=== PATIENT | female | born 1970 | race African-American/Black ===

== ENCOUNTER 2016-12-02 20:42 | Inpatient (IN) | payer OTHER, MEDICAID ==
[~2016-12-02] VITALS: Ht 170.2 cm; Wt 108.9 kg
[~2016-12-02 20:42] MED LIST: ASPIRIN; EXTAVIA; LEVOTHYROXINE PO; MOMETASONE FUROATE; NAPROXEN; NOVOLOG; SIMV40TA5 PO; VIT D; [UNRECOGNIZED DRUG - CODE]; [UNRECOGNIZED DRUG - OTHER]
[2016-12-02 23:08] LABS: BASOPHILS % 0.6 % (0.0-2.0); EOSINOPHILS % 0.8 % (0.0-5.0); HEMATOCRIT. 41.8 % (36.0-48.0); HEMOGLOBIN. 13.8 g/dL (12.0-16.0); LYMPHOCYTES % 27.3 % (20.0-50.0); MEAN CORPUSCULAR HEMOGLOBIN 29.7 pg (28.0-32.0); MEAN CORPUSCULAR VOLUME 89.6 fL (81.0-99.0); MEAN PLATELET VOLUME 10.7 fl (7.4-10.4); MONOCYTES % 4.1 % (2.0-8.0); NEUTROPHILS % 67.2 % (40.0-76.0); PLATELET 124 x1000/uL (130-400); RED BLOOD CELL COUNT 4.66 mill/uL (4.2-5.4); RED CELL DISTRIBUTION WIDTH 15.2 % (11.6-14.6)
[2016-12-02 23:14] LABS: HCG SCREEN NEGATIVE
[2016-12-02 23:15] LABS: CHLORIDE 108 mEq/L (98-107)
[2016-12-02 23:17] LABS: CARBON DIOXIDE 24 mEq/L (21-32)
[2016-12-02 23:23] LABS: CREATINE KINASE 127 IU/L (26-192); PHOSPHORUS 2.9 mg/dL (2.5-4.9)
[2016-12-02 23:25] LABS: CREATINE KINASE MB FRACTION 3.5 ng/mL (0.5-3.6); TROPONIN I < 0.02 ng/mL (0.00-0.04)
[2016-12-03] MEDS ORDERED: MECLIZINE 25MG TABLET PO ONE (01:30)
[2016-12-03 04:00] VITALS: BP 153/87
[2016-12-03] MEDS ORDERED: DEXTROSE 50% WATER 50ML SYRINGE IV PRN (05:30)
[2016-12-03] MEDS ORDERED: ONDANSETRON HCL 4MG/2ML VIAL IV PRN (05:45)
[2016-12-03] MEDS ORDERED: ASPIRIN/ACETAMINOPHEN/CAFFEINE 250/250/65MG TABLET PO PRN ×3 (05:45→06:00)
[2016-12-03] MEDS ORDERED: ACETAMINOPHEN 325MG TABLET PO PRN (05:45)
[2016-12-03] MEDS: BLOOD SUGAR DIAGNOSTIC STRIP TEST SCH ×5 (06:46→20:27)
[2016-12-03 08:00] VITALS: BP 120/61
[2016-12-03] MEDS: LEVOTHYROXINE SODIUM 25MCG TABLET PO SCH (08:22)
[2016-12-03] MEDS: INSULIN LISPRO 100 UNITS/ML SUBCUT SCH ×5 (09:32→20:27)
[2016-12-03 12:00] VITALS: BP 118/68
[2016-12-03] MEDS: ASPIRIN/ACETAMINOPHEN/CAFFEINE 250/250/65MG TABLET PO PRN (12:21)
[2016-12-03 16:00] VITALS: BP 138/72
[2016-12-03 20:00] VITALS: BP 136/70
[2016-12-04] VITALS: BP 138/86
[2016-12-04] MEDS ORDERED: INSULIN DETEMIR UD 100 UNITS/ML SYR SUBCUT SCH ×2 (02:00→22:00)
[2016-12-04] MEDS ORDERED: BLOOD SUGAR DIAGNOSTIC STRIP TEST SCH (03:00)
[2016-12-04] MEDS ORDERED: INSULIN LISPRO 100 UNITS/ML SUBCUT SCH (07:40)
[2016-12-04] MEDS: INSULIN LISPRO 100 UNITS/ML SUBCUT SCH ×3 (07:40→18:03)
[2016-12-04] MEDS: INSULIN LISPRO (LOW DOSE) 100 UNITS/ML SUBCUT SCH ×3 (07:40→18:07)
[2016-12-04] MEDS: BLOOD SUGAR DIAGNOSTIC STRIP TEST SCH ×3 (07:40→18:07)
[2016-12-04] MEDS: LEVOTHYROXINE SODIUM 25MCG TABLET PO SCH (07:40)
[2016-12-04 08:00] VITALS: BP 121/68
[2016-12-04] MEDS: ASPIRIN/ACETAMINOPHEN/CAFFEINE 250/250/65MG TABLET PO PRN (11:45)
[2016-12-04 12:00] VITALS: BP 132/64
[2016-12-04 13:42] LABS: CARBON DIOXIDE 26 mEq/L (21-32); CHLORIDE 106 mEq/L (98-107)
[2016-12-04 14:00] VITALS: BP 118/62
[2016-12-04 16:00] VITALS: BP 126/64
[2016-12-04 17:00] VITALS: BP 135/83
== END 2016-12-04 18:55 | disposition short-term general hospital (02) | DRG 637 ==
LOC: ER 21:14 → 7WST 12-03 01:19 → ENRESERV 12-03 05:01
PROVIDERS: ADMIT Internal Medicine; ATTEND Internal Medicine
DX: E10.649 Type 1 diabetes mellitus with hypoglycemia without coma (principal); G93.41 Metabolic encephalopathy; E03.9 Hypothyroidism, unspecified; E66.9 Obesity, unspecified; E78.00 Pure hypercholesterolemia, unspecified; F41.1 Generalized anxiety disorder; D23.9 Other benign neoplasm of skin, unspecified; G35 Multiple sclerosis; I10 Essential (primary) hypertension; Z79.899 Other long term (current) drug therapy; Z83.3 Family history of diabetes mellitus; Z68.37 Body mass index [BMI] 37.0-37.9, adult; T38.3X5A Adverse effect of insulin and oral hypoglycemic [antidiabetic] drugs, initial encounter
CPT/HCPCS: 36415; 80048; 80053; 82533; 82550; 82553; 82962; 83519; 83735; 84100; 84132; 84443; 84484; 84681; 84703; 85025; 93005; 93970; 99285; J1815; J2405; J8597

== ENCOUNTER 2017-12-10 17:26 | Emergency (ER) | payer OTHER, MEDICAID ==
[~2017-12-10] VITALS: Ht 165.1 cm; Wt 69.0 kg
[2017-12-10] MEDS ORDERED: DEXTROSE 50% WATER 50ML SYRINGE IV ONE ×2 (18:14→18:30)
[2017-12-10] MEDS ORDERED: SODIUM CHLORIDE 0.9% 1,000 ML IV ONE (18:19)
[2017-12-10] MEDS ORDERED: IBUPROFEN 600MG TABLET PO ONE (18:30)
[2017-12-10 20:28] LABS: BASOPHILS % 0.5 % (0.0-2.0); EOSINOPHILS % 1.5 % (0.0-5.0); HEMATOCRIT. 39.2 % (36.0-48.0); HEMOGLOBIN. 12.8 g/dL (12.0-16.0); LYMPHOCYTES % 39.5 % (20.0-50.0); MEAN CORPUSCULAR HEMOGLOBIN 29.5 pg (28.0-32.0); MEAN CORPUSCULAR VOLUME 90.3 fL (81.0-99.0); MEAN PLATELET VOLUME 12.6 fl (7.4-10.4); MONOCYTES % 7.3 % (2.0-8.0); NEUTROPHILS % 51.2 % (40.0-76.0); PLATELET 112 x1000/uL (130-400); RED BLOOD CELL COUNT 4.35 mill/uL (4.2-5.4); RED CELL DISTRIBUTION WIDTH 15.4 % (11.6-14.6)
[2017-12-10 23:30] VITALS: BP 145/67
[2017-12-11 00:01] LABS: CHLORIDE 108 mEq/L (98-107)
== END 2017-12-11 01:09 | disposition home or self-care (01) ==
LOC: ER 17:26
DX: S82.491A Other fracture of shaft of right fibula, initial encounter for closed fracture (principal); S82.51XA Displaced fracture of medial malleolus of right tibia, initial encounter for closed fracture; E11.649 Type 2 diabetes mellitus with hypoglycemia without coma; T38.3X5A Adverse effect of insulin and oral hypoglycemic [antidiabetic] drugs, initial encounter; W01.0XXA Fall on same level from slipping, tripping and stumbling without subsequent striking against object, initial encounter; Y93.89 Activity, other specified; Y92.512 Supermarket, store or market as the place of occurrence of the external cause; Z79.4 Long term (current) use of insulin; Z88.5 Allergy status to narcotic agent
CPT/HCPCS: 29515; 36415; 73610; 80053; 81025; 82962; 85025; 96361; 96374; 99285; J7030

== ENCOUNTER 2019-01-08 12:30 | Emergency (ER) | payer OTHER, MEDICAID ==
[~2019-01-08] VITALS: Ht 170.2 cm; Wt 109.0 kg
[2019-01-08] MEDS ORDERED: CLONIDINE 0.2MG TABLET PO ONE (16:15)
[2019-01-08 17:20] VITALS: BP 174/87
== END 2019-01-08 17:23 | disposition home or self-care (01) ==
LOC: ER 12:46
DX: B02.9 Zoster without complications (principal); G35 Multiple sclerosis; I10 Essential (primary) hypertension; Z88.2 Allergy status to sulfonamides; Z79.899 Other long term (current) drug therapy
CPT/HCPCS: 99283

== ENCOUNTER 2021-01-28 10:20 | Inpatient (IN) | payer OTHER, MEDICAID ==
[~2021-01-28] VITALS: Ht 170.2 cm; Wt 117.9 kg
[~2021-01-28 10:20] MED LIST changes: +SIMV-46 PO; -SIMV40TA5 PO
[2021-01-28] MEDS ORDERED: SODIUM CHLORIDE 0.9% 1,000 ML IV ONE (11:15)
[2021-01-28 11:49] LABS: BASOPHILS % 1.3 % (0.0-2.0); HEMATOCRIT. 44.3 % (36.0-48.0); LYMPHOCYTES % 24.1 % (20.0-50.0); MEAN CORPUSCULAR HEMOGLOBIN 28.9 pg (28.0-32.0); MEAN CORPUSCULAR VOLUME 91.2 fL (81.0-99.0); MEAN PLATELET VOLUME 11.1 fl (7.4-10.4); MONOCYTES % 5.7 % (2.0-8.0); NEUTROPHILS % 68.9 % (40.0-76.0); PLATELET 218 x1000/uL (130-400); RED BLOOD CELL COUNT 4.85 mill/uL (4.2-5.4); RED CELL DISTRIBUTION WIDTH 16.3 % (11.6-14.6)
[2021-01-28 11:53] LABS: CLARITY URINE CLEAR (CLEAR); COLOR URINE YELLOW (YELLOW); KETONES URINE 3+ (NEGATIVE); LEUKOCYTE ESTERASE URINE NEGATIVE (NEGATIVE); NITRITE URINE POSITIVE (NEGATIVE); OCCULT BLOOD URINE 2+ (NEGATIVE); PH URINE 5.5 (4.5-8.0); PROTEIN URINE TRACE (NEGATIVE); UROBILINOGEN URINE 0.2 E.U./dL (0.2-1.0)
[2021-01-28 11:54] LABS: CHLORIDE 96 mEq/L (98-107)
[2021-01-28 11:59] LABS: ETHANOL BLOOD < 10 mg/dL
[2021-01-28 12:01] LABS: BETA HYDROXYBUTYRATE 8.2 mMol/L (0.0-0.3)
[2021-01-28 12:01] LABS: BG BASE EXCESS -15.5 mmol/L (-2.0-2.0); BG CARBOXYHEMOGLOBIN 0.4 % (0.5-1.5); BG FRACTION INSPIRED OXYGEN 21; BG METHEMOGLOBIN 0.3 % (0.0-1.5); BG OXYHEMOGLOBIN 96.3 % (94.0-97.0); BG PCO2 24.1 mmHg (35.0-45.0); BG PH 7.236 (7.350-7.450); BG PO2 105.9 mmHg (75.0-100.0); BG SAMPLE SITE RIGHT RADIAL; BG TOTAL HEMOGLOBIN 14.7 g/dL (12.0-18.0); BG VENT MODE ROOM AIR
[2021-01-28 12:03] LABS: CREATINE KINASE 36 IU/L (26-192)
[2021-01-28] MEDS ORDERED: LEVOFLOXACIN 500MG PREMIX 100 ML IV ONE (12:15)
[2021-01-28] MEDS ORDERED: INSULIN REGULAR (DRIP) 100 UNITS in SODIUM CHLORIDE 0.9% 99 ML IV ONE ×2 (12:15→15:00)
[2021-01-28 13:15] LABS: *AMPHETAMINES SCREEN URINE NEGATIVE (NEGATIVE); *BARBITURATES SCREEN URINE NEGATIVE (NEGATIVE); *BENZODIAZEPINES SCREEN URINE NEGATIVE (NEGATIVE)
[2021-01-28 13:16] LABS: *COCAINE SCREEN URINE NEGATIVE (NEGATIVE); CANNABINOID URINE SCREEN NEGATIVE (NEGATIVE); METHADONE URINE SCREEN NEGATIVE (NEGATIVE); OPIATES URINE SCREEN NEGATIVE (NEGATIVE); PHENCYCLIDINE URINE SCREEN NEGATIVE (NEGATIVE)
[2021-01-28] MEDS ORDERED: SODIUM CHLORIDE 0.9% 1000ML BAG (SEPSIS BOLUS) IV ONE (14:45)
[2021-01-28] MEDS ORDERED: ACETAMINOPHEN 325MG TABLET PO PRN (16:15)
[2021-01-28] MEDS ORDERED: ONDANSETRON HCL 4MG/2ML INJ IV PRN (16:15)
[2021-01-28] MEDS ORDERED: SODIUM CHLORIDE 0.9% 1,000 ML IV SCH (16:15)
[2021-01-28 21:23] LABS: CHLORIDE 109 mEq/L (98-107)
[2021-01-28 21:29] LABS: PHOSPHORUS 3.7 mg/dL (2.5-4.9)
[2021-01-29 01:58] LABS: CHLORIDE 112 mEq/L (98-107)
[2021-01-29] MEDS ORDERED: DEXTROSE 50% WATER 50ML SYRINGE IV PRN (03:15)
[2021-01-29] MEDS: INSULIN LISPRO (HIGH DOSE) 100 UNITS/ML SUBCUT SCH ×4 (06:41→21:13)
[2021-01-29] MEDS: BLOOD SUGAR DIAGNOSTIC STRIP TEST SCH ×4 (06:41→21:15)
[2021-01-29 08:20] LABS: BASOPHILS % 0.6 % (0.0-2.0); EOSINOPHILS % 0.8 % (0.0-5.0); HEMATOCRIT. 39.4 % (36.0-48.0); HEMOGLOBIN. 13.3 g/dL (12.0-16.0); LYMPHOCYTES % 30.2 % (20.0-50.0); MEAN CORPUSCULAR HEMOGLOBIN 29.9 pg (28.0-32.0); MEAN CORPUSCULAR VOLUME 88.6 fL (81.0-99.0); MEAN PLATELET VOLUME 10.4 fl (7.4-10.4); MONOCYTES % 12.2 % (2.0-8.0); NEUTROPHILS % 56.2 % (40.0-76.0); PLATELET 201 x1000/uL (130-400); RED BLOOD CELL COUNT 4.45 mill/uL (4.2-5.4); RED CELL DISTRIBUTION WIDTH 15.5 % (11.6-14.6)
[2021-01-29 08:24] LABS: CHLORIDE 113 mEq/L (98-107)
[2021-01-29 08:25] LABS: CHLORIDE 112 mEq/L (98-107)
[2021-01-29] MEDS ORDERED: LEVOFLOXACIN 500MG PREMIX 100 ML IV SCH (09:00)
[2021-01-29 09:30] VITALS: BP 121/75
[2021-01-29 10:42] VITALS: BP 121/75
[2021-01-29] MEDS: LEVOFLOXACIN 500MG PREMIX 100 ML IV SCH (11:55)
[2021-01-29] MEDS: PANTOPRAZOLE SODIUM 40 MG/VIAL IV SCH (11:55)
[2021-01-29 12:00] VITALS: BP 128/58
[2021-01-29] MEDS: SODIUM CHLORIDE 0.45% 1,000 ML IV SCH (12:05)
[2021-01-29] MEDS ORDERED: INSULIN GLARGINE UD 100 UNITS/ML SYR SUBCUT SCH (13:00)
[2021-01-29 16:00] VITALS: BP 143/89
[2021-01-29 20:00] VITALS: BP 120/69
[2021-01-29] MEDS ORDERED: SODIUM POLYSTYRENE SULFONATE 15 G/60 ML BOT PO NR (20:00)
[2021-01-29] MEDS: ENOXAPARIN 30MG/0.3ML SYR SUBCUT SCH (22:13)
[2021-01-29] MEDS: INSULIN GLARGINE UD 100 UNITS/ML SYR SUBCUT SCH (22:13)
[2021-01-30] VITALS: BP 132/78
[2021-01-30 04:00] VITALS: BP 127/74
[2021-01-30] MEDS: BLOOD SUGAR DIAGNOSTIC STRIP TEST SCH ×4 (06:22→21:00)
[2021-01-30] MEDS: INSULIN LISPRO (HIGH DOSE) 100 UNITS/ML SUBCUT SCH ×4 (06:36→21:13)
[2021-01-30] MEDS: SODIUM CHLORIDE 0.45% 1,000 ML IV SCH ×2 (06:36→14:22)
[2021-01-30 06:48] LABS: BASOPHILS % 0.5 % (0.0-2.0); EOSINOPHILS % 1.4 % (0.0-5.0); HEMATOCRIT. 38.5 % (36.0-48.0); HEMOGLOBIN. 12.7 g/dL (12.0-16.0); LYMPHOCYTES % 51.7 % (20.0-50.0); MEAN CORPUSCULAR HEMOGLOBIN 29.3 pg (28.0-32.0); MEAN CORPUSCULAR VOLUME 88.8 fL (81.0-99.0); MEAN PLATELET VOLUME 11.2 fl (7.4-10.4); MONOCYTES % 10.1 % (2.0-8.0); NEUTROPHILS % 36.3 % (40.0-76.0); PLATELET 128 x1000/uL (130-400); RED BLOOD CELL COUNT 4.33 mill/uL (4.2-5.4)
[2021-01-30 08:00] VITALS: BP 118/67
[2021-01-30] MEDS: PANTOPRAZOLE SODIUM 40 MG/VIAL IV SCH (09:34)
[2021-01-30] MEDS: LEVOFLOXACIN 500MG PREMIX 100 ML IV SCH (09:34)
[2021-01-30] MEDS: ENOXAPARIN 30MG/0.3ML SYR SUBCUT SCH ×2 (10:52→21:13)
[2021-01-30] MEDS: INSULIN GLARGINE UD 100 UNITS/ML SYR SUBCUT SCH ×2 (11:09→21:14)
[2021-01-30 12:00] VITALS: BP 102/57
[2021-01-30 16:06] VITALS: BP 100/65
[2021-01-30] MEDS ORDERED: LEVO500T89 MT (16:36)
[2021-01-30 20:00] VITALS: BP 109/56
[2021-01-31 04:00] VITALS: BP 139/81
[2021-01-31] MEDS: SODIUM CHLORIDE 0.45% 1,000 ML IV SCH ×2 (04:00→17:15)
[2021-01-31] MEDS: BLOOD SUGAR DIAGNOSTIC STRIP TEST SCH ×4 (06:03→21:30)
[2021-01-31] MEDS: INSULIN LISPRO (HIGH DOSE) 100 UNITS/ML SUBCUT SCH ×4 (06:11→21:29)
[2021-01-31 08:00] VITALS: BP 135/84
[2021-01-31] MEDS: LEVOFLOXACIN 500MG PREMIX 100 ML IV SCH (09:13)
[2021-01-31] MEDS: ENOXAPARIN 30MG/0.3ML SYR SUBCUT SCH ×2 (09:13→21:30)
[2021-01-31] MEDS: PANTOPRAZOLE SODIUM 40 MG/VIAL IV SCH (09:13)
[2021-01-31] MEDS: INSULIN GLARGINE UD 100 UNITS/ML SYR SUBCUT SCH ×2 (09:14→21:30)
[2021-01-31 12:00] VITALS: BP 154/83
[2021-01-31 16:00] VITALS: BP 121/64
[2021-01-31 16:51] VITALS: BP 121/64
[2021-01-31 20:00] VITALS: BP 120/75
== END 2021-01-31 21:38 | disposition home health service (06) | DRG 871 ==
LOC: ER 10:20 → EDBEDREQSVC 12:53 → EDBEDREQTM 12:53 → EDBEDREQ 12:53 → MICUSO 15:03 → EDBEDREQTM 15:07 → EDBEDREQ 15:07 → ENRESERV 01-29 07:20 → 7EST 01-29 08:57
PROVIDERS: ADMIT Internal Medicine; ATTEND Internal Medicine
PROC: 05HY33Z Insertion of Infusion Device into Upper Vein, Percutaneous Approach (ICD-10-PCS; principal; 2021-01-29)
PROC: B54MZZA Ultrasonography of Right Upper Extremity Veins, Guidance (ICD-10-PCS; 2021-01-29)
DX: A41.9 Sepsis, unspecified organism (principal); E11.10 Type 2 diabetes mellitus with ketoacidosis without coma; E87.1 Hypo-osmolality and hyponatremia; N39.0 Urinary tract infection, site not specified; F17.200 Nicotine dependence, unspecified, uncomplicated; E87.5 Hyperkalemia; Z20.822 Contact with and (suspected) exposure to COVID-19; E87.8 Other disorders of electrolyte and fluid balance, not elsewhere classified; G35 Multiple sclerosis; I10 Essential (primary) hypertension; Z88.1 Allergy status to other antibiotic agents; Z88.2 Allergy status to sulfonamides
CPT/HCPCS: 36415; 36600; 71045; 76937; 80048; 80053; 80305; 80320; 81003; 82010; 82375; 82550; 82805; 82962; 83605; 83735; 83880; 83930; 83935; 84100; 84145; 84484; 85025; 87426; 93005; 97116; 97162; 99291; C1725; C9113; J1650; J1815; J1956; J2405; J7030; J7040; J7050; G0480

== ENCOUNTER 2021-11-20 10:49 | Emergency (ER) | payer MEDICAID, OTHER ==
[~2021-11-20] VITALS: Ht 165.1 cm; Wt 158.0 kg
[~2021-11-20 10:49] MED LIST changes: -ASPIRIN; -EXTAVIA; +LEVO500T90 MT; -MOMETASONE FUROATE; -NAPROXEN; -NOVOLOG; -SIMV-46 PO; -VIT D; -[UNRECOGNIZED DRUG - OTHER]
[2021-11-20 12:27] LABS: CLARITY URINE CLEAR (CLEAR); COLOR URINE YELLOW (YELLOW); KETONES URINE NEGATIVE (NEGATIVE); LEUKOCYTE ESTERASE URINE NEGATIVE (NEGATIVE); NITRITE URINE NEGATIVE (NEGATIVE); OCCULT BLOOD URINE NEGATIVE (NEGATIVE); PROTEIN URINE NEGATIVE (NEGATIVE); SPECIFIC GRAVITY URINE 1.009 (1.005-1.030); UROBILINOGEN URINE 0.2 E.U./dL (0.2-1.0)
[2021-11-20 13:15] VITALS: BP 116/96
[2021-11-20 13:29] LABS: BASOPHILS % 0.5 % (0.0-2.0); EOSINOPHILS % 0.8 % (0.0-5.0); HEMATOCRIT. 32.5 % (36.0-48.0); HEMOGLOBIN. 10.7 g/dL (12.0-16.0); LYMPHOCYTES % 36.1 % (20.0-50.0); MEAN CORPUSCULAR HEMOGLOBIN 29.6 pg (28.0-32.0); MEAN CORPUSCULAR VOLUME 89.7 fL (81.0-99.0); MEAN PLATELET VOLUME 11.2 fl (7.4-10.4); MONOCYTES % 7.4 % (2.0-8.0); NEUTROPHILS % 55.2 % (40.0-76.0); PLATELET 130 x1000/uL (130-400); RED BLOOD CELL COUNT 3.63 mill/uL (4.2-5.4); RED CELL DISTRIBUTION WIDTH 16.6 % (11.6-14.6)
[2021-11-20 13:44] LABS: CHLORIDE 118 mEq/L (98-107)
== END 2021-11-20 15:45 | disposition home or self-care (01) ==
LOC: ER 10:49
DX: E11.649 Type 2 diabetes mellitus with hypoglycemia without coma (principal); Z79.4 Long term (current) use of insulin
CPT/HCPCS: 36415; 71045; 80048; 81003; 82962; 85025; 99284

== ENCOUNTER 2024-11-05 13:10 | Inpatient (IN) | payer OTHER, MEDICAID ==
[~2024-11-05] VITALS: Ht 167.6 cm; Wt 93.4 kg
[2024-11-05] VITALS (15 sets, daily range): BP systolic 99–128; BP diastolic 61–101; PULSE 83–98; RESP 15–23; TEMP 36.696–36.7; O2SAT 97–100
[~2024-11-05 13:10] MED LIST changes: +LEVO-65 MT; -LEVO500T90 MT
[2024-11-05] MEDS: SODIUM CHLORIDE 0.9% 1,000 ML IV ONE ×2 (13:55→19:30)
[2024-11-05 14:20] LABS: HEMATOCRIT. 44.2 % (36.0-48.0); HEMOGLOBIN. 12.5 g/dL (12.0-16.0); MEAN PLATELET VOLUME 12.0 fl (7.4-10.4); PLATELET 227 x1000/uL (130-400); RED BLOOD CELL COUNT 4.15 mill/uL (4.2-5.4); RED CELL DISTRIBUTION WIDTH 15.9 % (11.6-14.6)
[2024-11-05 14:35] LABS: LYMPHOCYTES % MANUAL 5.0 % (20.0-60.0); MONOCYTES % MANUAL 2.0 % (2.0-8.0); NEUTROPHILS % MANUAL 93.0 % (45.0-75.0); PLATELET ESTIMATE NORMAL
[2024-11-05 14:37] LABS: CREATININE 2.6 mg/dL (0.6-1.0)
[2024-11-05 14:38] LABS: ETHANOL BLOOD < 10 mg/dL (<10); UREA NITROGEN BLOOD 44 mg/dL (9-23)
[2024-11-05 14:39] LABS: ASPARTATE AMINOTRANSFERASE 12 IU/L (<34)
[2024-11-05 14:40] LABS: BILIRUBIN DIRECT < 0.1 mg/dL (<=3.0); BILIRUBIN TOTAL 0.3 mg/dL (0.1-1.0); PROTEIN TOTAL 7.1 g/dL (6.0-8.3)
[2024-11-05] MEDS ORDERED: INSULIN REGULAR (DRIP) 100 UNITS in SODIUM CHLORIDE 0.9% 99 ML IV SCH (15:30)
[2024-11-05] MEDS: INSULIN REGULAR 100U/100ML PMX 100 ML IV SCH (15:50)
[2024-11-05] MEDS ORDERED: INSULIN REGULAR 100U/100ML PMX 100 ML IV SCH (17:15)
[2024-11-05] MEDS ORDERED: SODIUM CHLORIDE 0.45% 1,000 ML IV SCH (17:15)
[2024-11-05] MEDS ORDERED: ACETAMINOPHEN 325MG TABLET PO PRN ×2 (17:30)
[2024-11-05] MEDS ORDERED: MAGNESIUM/ALUMINUM HYDROXIDE/SIMETHICONE 30ML UDC PO PRN (17:30)
[2024-11-05] MEDS ORDERED: IPRATROPIUM/ALBUTEROL 0.5-3(2.5)MG/3ML NEB HHN PRN (17:30)
[2024-11-05] MEDS ORDERED: DOCUSATE SODIUM 100MG CAPSULE PO PRN (17:30)
[2024-11-05] MEDS ORDERED: GUAIFENESIN 200MG/10ML SUGAR FREE UDC PO PRN (17:30)
[2024-11-05 17:33] LABS: CREATININE 2.5 mg/dL (0.6-1.0); UREA NITROGEN BLOOD 39 mg/dL (9-23)
[2024-11-05 17:36] LABS: PHOSPHORUS 6.6 mg/dL (2.5-4.9)
[2024-11-05] MEDS ORDERED: CALCIUM GLUCONATE 1GM PREMIX 50 ML IV SCH (18:00)
[2024-11-05 18:30] LABS: BG BASE EXCESS -26.4 mmol/L (-2.0-3.0); BG CARBOXYHEMOGLOBIN 0.3 % (0.5-1.5); BG DEOXYHEMOGLOBIN 1.3 % (0.0-5.0); BG FRACTION INSPIRED OXYGEN 21; BG HCO3 ACT 2.7 mmol/L (21.0-28.0); BG METHEMOGLOBIN 0.1 % (0.5-1.5); BG OXYGEN SATURATION 98.7 % (94.0-98.0); BG OXYHEMOGLOBIN 98.3 % (94.0-98.0); BG PCO2 10.6 mmHg (32.0-45.0); BG PH 7.016 (7.350-7.450); BG PO2 150.2 mmHg (83.0-108.0); BG SAMPLE SITE RIGHT RADIAL; BG TOTAL HEMOGLOBIN 13.7 g/dL (12.0-16.0); BG VENT MODE ROOM AIR
[2024-11-05] MEDS: SODIUM BICARBONATE 8.4% 50MEQ/50ML SYR IV SCH (20:25)
[2024-11-05] MEDS: ENOXAPARIN 30MG/0.3ML SYR SUBCUT SCH (20:25)
[2024-11-05] MEDS ORDERED: SODIUM CHLORIDE 0.9% 1,000 ML IV ONE (20:30)
[2024-11-05] MEDS ORDERED: SODIUM BICARBONATE 100 MEQ in SODIUM CHLORIDE 0.45% 900 ML IV ONE (20:30)
[2024-11-05] MEDS: CALCIUM GLUCONATE 1GM PREMIX 50 ML IV SCH (21:01)
[2024-11-05] MEDS: DEXT 5%/0.45% NACL 1000ML 1,000 ML IV SCH (21:01)
[2024-11-06] VITALS (47 sets, daily range): BP systolic 95–170; BP diastolic 61–99; PULSE 76–104; RESP 11–26; TEMP 36.3–36.9; O2SAT 98–100
[2024-11-06 00:52] LABS: CREATININE 1.9 mg/dL (0.6-1.0); UREA NITROGEN BLOOD 41 mg/dL (9-23)
[2024-11-06 05:42] LABS: HEMATOCRIT. 36.7 % (36.0-48.0); HEMOGLOBIN. 11.9 g/dL (12.0-16.0); MEAN PLATELET VOLUME 10.8 fl (7.4-10.4); PLATELET 189 x1000/uL (130-400); RED BLOOD CELL COUNT 3.94 mill/uL (4.2-5.4); RED CELL DISTRIBUTION WIDTH 13.9 % (11.6-14.6)
[2024-11-06 05:51] LABS: CREATININE 1.6 mg/dL (0.6-1.0)
[2024-11-06 05:52] LABS: LDL CHOLESTEROL 76 mg/dL (5-100); TRIGLYCERIDE 121 mg/dL (0-150); UREA NITROGEN BLOOD 38 mg/dL (9-23)
[2024-11-06 05:55] LABS: T4 FREE 1.03 ng/dL (0.89-1.76)
[2024-11-06] MEDS: PANTOPRAZOLE SODIUM 40 MG/VIAL IV SCH (08:44)
[2024-11-06] MEDS: LEVOTHYROXINE SODIUM 100MCG TABLET PO SCH (08:45)
[2024-11-06 08:57] LABS: CREATININE 1.3 mg/dL (0.6-1.0)
[2024-11-06 08:58] LABS: UREA NITROGEN BLOOD 32 mg/dL (9-23)
[2024-11-06 09:33] LABS: BG BASE EXCESS -7.4 mmol/L (-2.0-3.0); BG CARBOXYHEMOGLOBIN 0.8 % (0.5-1.5); BG DEOXYHEMOGLOBIN 2.5 % (0.0-5.0); BG FRACTION INSPIRED OXYGEN 21; BG HCO3 ACT 18.0 mmol/L (21.0-28.0); BG METHEMOGLOBIN 0.2 % (0.5-1.5); BG OXYGEN SATURATION 97.5 % (94.0-98.0); BG OXYHEMOGLOBIN 96.5 % (94.0-98.0); BG PCO2 36.2 mmHg (32.0-45.0); BG PH 7.314 (7.350-7.450); BG PO2 97.6 mmHg (83.0-108.0); BG SAMPLE SITE RIGHT RADIAL; BG TOTAL HEMOGLOBIN 12.9 g/dL (12.0-16.0); BG VENT MODE ROOM AIR
[2024-11-06] MEDS: CLONIDINE 0.1MG TABLET PO PRN (09:58)
[2024-11-06] MEDS: LEVOFLOXACIN 750MG PREMIX 150 ML IV SCH (10:39)
[2024-11-06 11:50] LABS: BAND% 13.0 % (1.0-6.0); LYMPHOCYTES % MANUAL 6.0 % (20.0-60.0); MONOCYTES % MANUAL 4.0 % (2.0-8.0); NEUTROPHILS % MANUAL 77.0 % (45.0-75.0); NUCLEATED RED BLOOD CELLS 1 /100 WBC; PLATELET ESTIMATE NORMAL
[2024-11-06 12:51] LABS: CREATININE 1.3 mg/dL (0.6-1.0); UREA NITROGEN BLOOD 26 mg/dL (9-23)
[2024-11-06 12:53] LABS: PHOSPHORUS 1.4 mg/dL (2.5-4.9)
[2024-11-06] MEDS ORDERED: POTASSIUM CHLORIDE 40 MEQ in DEXT 5% WATER 230 ML IV ONE (15:15)
[2024-11-06] MEDS ORDERED: DEXTROSE 50% WATER 50ML SYRINGE IV PRN (16:30)
[2024-11-06 17:00] LABS: CLARITY URINE TURBID (CLEAR); COLOR URINE YELLOW (YELLOW); GLUCOSE URINE 2+ (NEGATIVE); KETONES URINE 1+ (NEGATIVE); LEUKOCYTE ESTERASE URINE 3+ (NEGATIVE); NITRITE URINE NEGATIVE (NEGATIVE); OCCULT BLOOD URINE 1+ (NEGATIVE); PH URINE 5.5 (4.5-8.0); PROTEIN URINE 1+ (NEGATIVE); SPECIFIC GRAVITY URINE 1.019 (1.005-1.030); UROBILINOGEN URINE 0.2 E.U./dL (0.2-1.0)
[2024-11-06 17:03] LABS: BACTERIA URINE 3+; SQUAMOUS EPITHELIAL CELL URINE FEW /lpf (RARE/1+); WBC URINE 25-50 /hpf (0-2)
[2024-11-06 17:13] LABS: *AMPHETAMINES SCREEN URINE NEGATIVE (NEGATIVE); *BARBITURATES SCREEN URINE NEGATIVE (NEGATIVE); *BENZODIAZEPINES SCREEN URINE NEGATIVE (NEGATIVE); *COCAINE SCREEN URINE NEGATIVE (NEGATIVE); CANNABINOID URINE SCREEN NEGATIVE (NEGATIVE); ECSTASY MDMA SCREEN URINE NEGATIVE (NEGATIVE); METHADONE URINE SCREEN NEGATIVE (NEGATIVE); OPIATES URINE SCREEN PRESUMPTIVE POSITIVE (NEGATIVE); PHENCYCLIDINE URINE SCREEN NEGATIVE (NEGATIVE)
[2024-11-06] MEDS: KCL 20MEQ/100ML X 2 FOR TOTAL KCL 40MEQ/200ML IV SCH (18:18)
[2024-11-06] MEDS: BLOOD SUGAR DIAGNOSTIC STRIP TEST SCH (18:19)
[2024-11-06] MEDS: INSULIN LISPRO 100 UNITS/ML SUBCUT SCH (18:57)
[2024-11-06] MEDS: ENOXAPARIN 40MG/0.4ML SYR SUBCUT SCH (19:01)
[2024-11-06] MEDS: INSULIN GLARGINE 100 UNITS/ML SUBCUT SCH (20:12)
[2024-11-06] MEDS: MAGNESIUM 4 G PREMIX 100 ML IV NR (20:45)
[2024-11-06] MEDS: SODIUM PHOSPHATE 30 MMOL in DEXT 5% WATER 490 ML IV NR (21:36)
[2024-11-06] MEDS ORDERED: INSULIN GLARGINE 100 UNITS/ML SUBCUT SCH (22:00)
[2024-11-06 22:26] LABS: CREATININE 1.2 mg/dL (0.6-1.0); UREA NITROGEN BLOOD 20 mg/dL (9-23)
[2024-11-06 22:28] LABS: PHOSPHORUS 1.3 mg/dL (2.5-4.9)
[2024-11-07] VITALS (82 sets, daily range): BP systolic 82–156; BP diastolic 59–116; PULSE 75–111; RESP 11–27; TEMP 36.5–36.9; O2SAT 97–100
[2024-11-07] MEDS ORDERED: CEFEPIME 2GM/100ML 100 ML IV SCH (03:15)
[2024-11-07 07:17] LABS: BASOPHILS % 0.2 % (0.0-2.0); EOSINOPHILS % 0.6 % (0.0-5.0); HEMATOCRIT. 35.3 % (36.0-48.0); HEMOGLOBIN. 11.5 g/dL (12.0-16.0); LYMPHOCYTES % 12.0 % (20.0-50.0); MEAN PLATELET VOLUME 11.1 fl (7.4-10.4); MONOCYTES % 4.9 % (2.0-8.0); NEUTROPHILS % 82.3 % (40.0-76.0); PLATELET 145 x1000/uL (130-400); RED BLOOD CELL COUNT 3.81 mill/uL (4.2-5.4); RED CELL DISTRIBUTION WIDTH 14.2 % (11.6-14.6)
[2024-11-07 07:32] LABS: CREATININE 1.1 mg/dL (0.6-1.0)
[2024-11-07 07:33] LABS: UREA NITROGEN BLOOD 17 mg/dL (9-23)
[2024-11-07 07:35] LABS: PHOSPHORUS 2.6 mg/dL (2.5-4.9)
[2024-11-07] MEDS: INSULIN REGULAR (HUMULIN R) 1000UNITS/10ML VIAL IV NR (09:43)
[2024-11-07] MEDS: MAGNESIUM/ALUMINUM HYDROXIDE/SIMETHICONE 30ML UDC PO PRN (15:20)
[2024-11-07] MEDS: INSULIN REGULAR (HUMULIN R) 1000UNITS/10ML VIAL IV SCH (15:27)
[2024-11-07] MEDS: PANTOPRAZOLE 80 MG in SODIUM CHLORIDE 0.9% 100 ML IV SCH (16:53)
[2024-11-07] MEDS: ONDANSETRON HCL 4MG/2ML INJ IV PRN (20:29)
[2024-11-07] MEDS: INSULIN GLARGINE 100 UNITS/ML SUBCUT SCH (21:58)
[2024-11-07] MEDS ORDERED: INSULIN GLARGINE 100 UNITS/ML SUBCUT SCH (22:00)
[2024-11-08] VITALS (25 sets, daily range): BP systolic 91–148; BP diastolic 56–111; PULSE 72–98; RESP 11–24; TEMP 36.7–37.1; O2SAT 97–100
[2024-11-08 06:35] LABS: CREATININE 0.9 mg/dL (0.6-1.0); UREA NITROGEN BLOOD 14 mg/dL (9-23)
[2024-11-08 06:37] LABS: PHOSPHORUS 1.9 mg/dL (2.5-4.9)
[2024-11-08 06:54] LABS: BASOPHILS % 0.4 % (0.0-2.0); EOSINOPHILS % 0.3 % (0.0-5.0); HEMATOCRIT. 31.9 % (36.0-48.0); HEMOGLOBIN. 10.6 g/dL (12.0-16.0); LYMPHOCYTES % 29.2 % (20.0-50.0); MEAN PLATELET VOLUME 11.0 fl (7.4-10.4); MONOCYTES % 7.6 % (2.0-8.0); NEUTROPHILS % 62.5 % (40.0-76.0); PLATELET 135 x1000/uL (130-400); RED BLOOD CELL COUNT 3.43 mill/uL (4.2-5.4); RED CELL DISTRIBUTION WIDTH 14.4 % (11.6-14.6)
[2024-11-08] MEDS ORDERED: INSULIN GLARGINE 100 UNITS/ML SUBCUT SCH ×2 (10:00)
[2024-11-08] MEDS: INSULIN GLARGINE 100 UNITS/ML SUBCUT SCH (10:29)
[2024-11-08] MEDS: POTASSIUM-SODIUM PHOSPHATE POWDER PACKET PO NR (18:59)
[2024-11-09] VITALS (23 sets, daily range): BP systolic 103–142; BP diastolic 63–108; PULSE 72–95; RESP 14–25; TEMP 36.5–36.9; O2SAT 95–100
[2024-11-09 06:06] LABS: BASOPHILS % 0.4 % (0.0-2.0); EOSINOPHILS % 0.9 % (0.0-5.0); HEMATOCRIT. 32.5 % (36.0-48.0); HEMOGLOBIN. 11.0 g/dL (12.0-16.0); LYMPHOCYTES % 34.8 % (20.0-50.0); MEAN PLATELET VOLUME 11.0 fl (7.4-10.4); MONOCYTES % 8.3 % (2.0-8.0); NEUTROPHILS % 55.6 % (40.0-76.0); PLATELET 129 x1000/uL (130-400); RED BLOOD CELL COUNT 3.55 mill/uL (4.2-5.4); RED CELL DISTRIBUTION WIDTH 13.9 % (11.6-14.6)
[2024-11-09 06:23] LABS: CREATININE 0.8 mg/dL (0.6-1.0); UREA NITROGEN BLOOD 11 mg/dL (9-23)
[2024-11-09] MEDS: INSULIN GLARGINE 100 UNITS/ML SUBCUT SCH ×2 (09:10→23:45)
[2024-11-09] MEDS ORDERED: BLOO-1812 MC (10:27)
[2024-11-09] MEDS ORDERED: INSU100I28 SQ (10:27)
[2024-11-09] MEDS ORDERED: LANC-585 TP (10:27)
[2024-11-09] MEDS ORDERED: LANC1KIT37 MC (10:27)
[2024-11-09] MEDS: LEVOFLOXACIN 750MG PREMIX 150 ML IV SCH (17:46)
[2024-11-09] MEDS: PANTOPRAZOLE SODIUM 40 MG/VIAL IV SCH (23:32)
[2024-11-10 04:00] VITALS: BP 145/89; PULSE 77; RESP 17; TEMP 36.1; O2SAT 96
[2024-11-10 08:00] VITALS: BP 143/69; PULSE 86; RESP 20; TEMP 36.2; O2SAT 100
[2024-11-10] MEDS: INSULIN GLARGINE 100 UNITS/ML SUBCUT SCH (10:00)
[2024-11-10 12:00] VITALS: BP 131/77; PULSE 89; RESP 20; TEMP 36.1; O2SAT 99
[2024-11-10 16:00] VITALS: BP 120/57; PULSE 78; RESP 20; TEMP 36.2; O2SAT 97
[2024-11-10 20:00] VITALS: BP 145/89; PULSE 84; RESP 18; TEMP 36.3; O2SAT 100
[2024-11-11] VITALS: BP 139/85; PULSE 78; RESP 17; TEMP 36.3; O2SAT 96
[2024-11-11 04:00] VITALS: BP 146/83; PULSE 75; RESP 18; TEMP 36.4; O2SAT 98
[2024-11-11 08:00] VITALS: BP 155/86; PULSE 77; RESP 19; TEMP 36.8; O2SAT 99
[2024-11-11 11:27] VITALS: BP 155/86; PULSE 77; RESP 19; TEMP 98.2
[2024-11-11 12:00] VITALS: BP 145/81; PULSE 78; RESP 16; TEMP 36.7; O2SAT 99
== END 2024-11-11 12:27 | disposition home health service (06) | DRG 871 ==
LOC: ER 13:10 → CVICU 16:27 → EDBEDREQ 16:32 → EDBEDREQTM 16:32 → ENRESERV 17:39 → 7EST 11-09 22:23
PROVIDERS: ADMIT Hospitalist; ATTEND Hospitalist
DX: A41.9 Sepsis, unspecified organism (principal); E11.10 Type 2 diabetes mellitus with ketoacidosis without coma; G93.41 Metabolic encephalopathy; N39.0 Urinary tract infection, site not specified; N17.9 Acute kidney failure, unspecified; Z91.148 Patient's other noncompliance with medication regimen for other reason; G35 Multiple sclerosis; E87.5 Hyperkalemia; D64.9 Anemia, unspecified; E86.0 Dehydration; E78.00 Pure hypercholesterolemia, unspecified; N18.9 Chronic kidney disease, unspecified; I12.9 Hypertensive chronic kidney disease with stage 1 through stage 4 chronic kidney disease, or unspecified chronic kidney disease; E11.22 Type 2 diabetes mellitus with diabetic chronic kidney disease; E03.9 Hypothyroidism, unspecified; Z79.4 Long term (current) use of insulin; Z74.01 Bed confinement status; Z88.1 Allergy status to other antibiotic agents; Z88.2 Allergy status to sulfonamides; Z88.3 Allergy status to other anti-infective agents
CPT/HCPCS: 36415; 36600; 74176; 76770; 80048; 80061; 80076; 80305; 80320; 81003; 82010; 82140; 82375; 82550; 82805; 82962; 83036; 83605; 83735; 83930; 84100; 84145; 84439; 84443; 85025; 93005; 94640; 96360; 96361; 97163; 99291; A4606; J0612; J1650; J1815; J1956; J2405; J2470; J3475; J3480; J3490; J7030; J7050; J7060; G0480